=== PATIENT | male | born 1990 | race Caucasian/White ===

== ENCOUNTER 2024-10-25 12:38 | Emergency (ER) | payer OTHER ==
[2024-10-25 12:46] VITALS: RESP 19; TEMP 98.4; BMI 39.9
[2024-10-25] MEDS ORDERED: LIDOCAINE 5% TOPICAL PATCH ONE (14:21)
[2024-10-25] MEDS: LIDOCAINE 5% TOPICAL PATCH TP ONE (14:28)
[2024-10-25 15:41] VITALS: BP 128/77; PULSE 84
[2024-10-25] MEDS ORDERED: LIDOCAINE PATCH REMOVAL MC SCH (22:00)
== END 2024-10-25 15:43 | disposition home or self-care (01) ==
LOC: JER 12:38
DX: M54.50 Low back pain, unspecified (principal); W10.8XXA Fall (on) (from) other stairs and steps, initial encounter
CPT/HCPCS: 72220-TC-FY; 99283-25

== ENCOUNTER 2024-11-20 15:52 | Emergency (ER) | payer OTHER ==
[2024-11-20 16:03] VITALS: RESP 18; BMI 39.9
[2024-11-20] MEDS ORDERED: predniSONE 20 MG TABLET (UD) ONE (17:18)
[2024-11-20] MEDS: ACETAMINOPHEN 500 MG TABLET (FP) PO ONE (17:21)
[2024-11-20] MEDS: predniSONE 20 MG TABLET (UD) PO ONE (17:21)
[2024-11-20 20:49] VITALS: BP 121/82; PULSE 88; TEMP 98.4
== END 2024-11-20 20:49 | disposition home or self-care (01) ==
LOC: JERFT 15:52
DX: M54.41 Lumbago with sciatica, right side (principal); R29.898 Other symptoms and signs involving the musculoskeletal system; M79.604 Pain in right leg; W10.9XXA Fall (on) (from) unspecified stairs and steps, initial encounter; Y92.009 Unspecified place in unspecified non-institutional (private) residence as the place of occurrence of the external cause; Y93.01 Activity, walking, marching and hiking
CPT/HCPCS: 72131-TC; 99284-25